=== PATIENT | female | born 1985 | race American Indian/Alaskan Native ===

== ENCOUNTER 2016-11-24 16:36 | Inpatient (IN) | payer MEDICAID ==
[2016-11-24] MEDS ORDERED: BRETHINE IVP PRN (20:25)
[2016-11-24] MEDS ORDERED: XYLOCAINE 2% INFILTRATI ONE (20:25)
[2016-11-24] MEDS ORDERED: BRETHINE SUB-Q PRN (20:25)
[2016-11-24] MEDS ORDERED: POLYCILLIN/NS 2 GM/100 ML 2 GM/100 ML BAG IV ONE (20:25)
[2016-11-24] MEDS ORDERED: ZOFRAN IV PRN (20:25)
[2016-11-24] MEDS ORDERED: ePHEDrine SULFATE IV PRN ×2 (20:25→22:11)
[2016-11-24] MEDS ORDERED: SUBLIMAZE IV PRN (20:25)
[2016-11-24] MEDS ORDERED: STADOL IV PRN (20:25)
[2016-11-24] MEDS ORDERED: MINERAL OIL PO PRN (20:25)
--- NOTE | 2016-11-24 20:31 | History and Physical Report ---
History of Present Illness Date of examination: 11/24/16 Date of admission: 11/24/16 20:23 Chief complaint: Labor History of present illness: Pt is a 31yo BF EDC 11/18/16; EGA 40 6/7 weeks presents to L&D complaining of RUC's q 3-5 mins. She received late care at [facility] since 24 weeks, and course has been unremarkable except for Trichomonas treated 11/17/16. records are available and GBS is Negative. Past History Past Medical History: no pertinent history Past Surgical History: no surgical history INSURANCE COUNSEL History: chlamydia, herpes, trichomonas Family/Genetic History: diabetes, other (asthma) Social history: no significant social history, single - Obstetrical History Expected Date of Delivery: 11/18/16 Actual Gestation: 40 Week(s) 6 Day(s) : 3 Medications and Allergies Allergies Allergy/AdvReac Type Severity Reaction Status Date / Time No Known Allergies Allergy Verified 02/12/14 02:17 Home Medications Medication Instructions Recorded Confirmed Last Taken Type No Known Home Medications [No 09/21/15 09/21/15 Unknown History Reported Home Medications] Active Meds: Active Medications Butorphanol Tartrate (Stadol) 2 mg IV Q2H PRN PRN Reason: Pain , Severe (7-10) Ephedrine Sulfate (Ephedrine Sulfate) 10 mg IV Q2M PRN PRN Reason: Hypotension Stop: 11/24/16 20:30 Fentanyl (Sublimaze) 100 mcg IV Q2H PRN PRN Reason: Labor Pain Ampicillin Sodium (Polycillin/Ns 1 Gm/50 Ml) 1 gm in 50 mls @ 100 mls/hr IV Q4HR CHRISTINA PRN Reason: Protocol Ampicillin Sodium (Polycillin/Ns 2 Gm/100 Ml) 2 gm in 100 mls @ 100 mls/hr IV ONCE ONE PRN Reason: Protocol Stop: 11/24/16 21:24 Review of Systems All systems: negative - Vital Signs Vital signs: Vital Signs Pulse BP 91 H 124/79 11/24/16 17:00 11/24/16 17:00 Temp Pulse Resp BP Pulse Ox 91 H 118/70 11/24/16 17:00 11/24/16 17:00 - Physical Exam Breasts: Positive: deferred Cardiovascular: Regular rate Lungs: Positive: Clear to auscultation Abdomen: Positive: normal appearance Genitourinary (Female): Positive: normal external genitalia Uterus: Positive: normal size Extremities: Positive: normal - Obstetrical FHR: category 1 Uterine Contraction Monitor Mode: External Cervical Dilatation: 4 Cervical Effacement Percentage: 70 station: -2 Uterine Contraction Pattern: Regular Uterine Tone Measurement Phase: Contraction Uterine Contraction Intensity: Moderate Results Result Diagrams: 11/24/16 20:15 All other labs normal. Assessment and Plan - Patient Problems (1) 40 weeks gestation of Onset Date: 11/24/16 Current Visit: Yes Status: Acute Plan to address problem: A: IUP @ 40 6/7 weeks in labor P: Admit to L&D for expectant vaginal delivery (2) Active labor at term Onset Date: 11/24/16 Current Visit: No Status: Acute
[2016-11-24 20:39] LABS: Hematocrit 37.1 % (30.3-42.9); Hemoglobin 12.4 gm/dl (10.1-14.3); Mean Corpuscular HGB Conc 33 % (30-34); Mean Corpuscular Hemoglobin 27 pg (28-32); Mean Corpuscular Volume 81 fl (79-97); Platelet Count 151 K/mm3 (140-440); Red Blood Count 4.58 M/mm3 (3.65-5.03); Red Cell Distribution Width 13.9 % (13.2-15.2); White Blood Count 6.1 K/mm3 (4.5-11.0)
[2016-11-24] MEDS: LACTATED RINGERS 1,000 ML IV SCH ×2 (20:48→21:47)
[2016-11-24] MEDS ORDERED: PITOCin/NS 20 UNIT/1000ML DRIP 20 UNITS/1,000 ML BAG IV SCH (21:00)
[2016-11-24] MEDS ORDERED: PITOCin/NS 30 UNIT/500ML 30 UNITS/500 ML BAG IV SCH ×2 (21:00)
[2016-11-24] MEDS ORDERED: ePHEDrine SULFATE ONE (22:02)
[2016-11-24] MEDS ORDERED: NARCAN 2 MG/2 ML IV PRN (22:11)
--- NOTE | 2016-11-24 22:12 | Anesthesia Consultation ---
Anesthesia Consult and Med Hx Date of service: 11/24/16 - Airway Anesthetic Teeth Evaluation: Good ROM Head & Neck: Adequate Mental/Hyoid Distance: Adequate Mallampati Class: Class II Intubation Access Assessment: Probably Good - Pulmonary Exam CTA: Yes - Cardiac Exam Cardiac Exam: RRR - Pre-Operative Health Status ASA Pre-Surgery Classification: ASA2 Proposed Anesthetic Plan: Epidural - Pulmonary Hx Asthma: No COPD: No Hx Pneumonia: No - Cardiovascular System Hx Hypertension: No - Central Nervous System Hx Seizures: No Hx Psychiatric Problems: No - Endocrine Hx Renal Disease: No Hx End Stage Renal Disease: No Hx Hypothyroidism: No Hx Hyperthyroidism: No - Hematic Hx Anemia: No Hx Sickle Cell Disease: No - Other Systems Hx Alcohol Use: No
[2016-11-24] MEDS: fentaNYL-BUPIV 2 MCG/ML-0.125% 200 MCG/100 ML BAG EPIDURAL SCH (22:35)
[2016-11-25] MEDS ORDERED: POLYCILLIN/NS 1 GM/50 ML 1 GM/50 ML BAG IV SCH (00:27)
[2016-11-25] MEDS: LACTATED RINGERS 1,000 ML IV SCH ×2 (02:05→05:48)
[2016-11-25] MEDS: fentaNYL-BUPIV 2 MCG/ML-0.125% 200 MCG/100 ML BAG EPIDURAL SCH (05:44)
[2016-11-25] MEDS ORDERED: BICITRA ONE (07:20)
[2016-11-25] MEDS ORDERED: REGLAN ONE (07:21)
[2016-11-25] MEDS ORDERED: PEPCID IV ONE (07:21)
[2016-11-25] MEDS ORDERED: ANCEF/STERILE WATER 2 GM/20 ML 2 GM/20 ML SYRINGE IV ONE (07:22)
--- NOTE | 2016-11-25 07:30 | Progress Note ---
Assessment and Plan - Patient Problems (1) 40 weeks gestation of Onset Date: 11/24/16 Current Visit: Yes Status: Acute Plan to address problem: A: IUP @ 41 0/7 weeks in labor Face presentation - mentum posterior. I discussed with pt that the baby may turn, but there is the possibility that if she remains mentum posterior that she will not deliver vaginally, and a C Section my be necessary. P: Will attempt to turn the fetus when completely dilated, otherwise will proceed with a C Section (2) Active labor at term Onset Date: 11/24/16 Current Visit: No Status: Acute Subjective - Subjective Date of service: 11/25/16 Principal diagnosis: IUP @ 41 0/7 weeks Interval history: Pt is currently 9.5/C/Face presentation - mentum posterior. I discussed with pt that the baby may turn, but there is the possibility that if she remains mentum posterior that she will not deliver vaginally, and a C Section my be necessary. Patient reports: loss of fluid, movement normal, contractions, no new complaints, no vaginal bleeding Objective - Vital Signs Vital Signs: Vital Signs - 12hr 11/24/16 11/24/16 11/24/16 20:50 21:08 21:51 Temperature 97.8 F Pulse Rate 84 Respiratory 18 18 Rate Blood Pressure O2 Sat by Pulse 99 Oximetry 11/24/16 11/24/16 11/24/16 21:54 21:56 21:57 Temperature Pulse Rate 81 80 80 Respiratory Rate Blood Pressure 119/69 120/70 O2 Sat by Pulse 100 Oximetry 11/24/16 11/24/16 11/24/16 21:58 22:00 22:02 Temperature Pulse Rate 82 82 85 Respiratory Rate Blood Pressure 125/74 113/71 O2 Sat by Pulse 99 Oximetry 11/24/16 11/24/16 11/24/16 22:04 22:06 22:07 Temperature Pulse Rate 86 96 H 92 H Respiratory Rate Blood Pressure 118/58 101/58 O2 Sat by Pulse 100 Oximetry 11/24/16 11/24/16 11/24/16 22:08 22:10 22:12 Temperature Pulse Rate 97 H 107 H 107 H Respiratory Rate Blood Pressure 96/55 98/55 116/67 O2 Sat by Pulse 100 Oximetry 11/24/16 11/24/16 11/24/16 22:14 22:16 22:17 Temperature Pulse Rate 91 H 98 H 114 H Respiratory Rate Blood Pressure 121/66 125/66 O2 Sat by Pulse 100 Oximetry 11/24/16 11/24/16 11/24/16 22:18 22:22 22:27 Temperature Pulse Rate 108 H 107 H 94 H Respiratory Rate Blood Pressure 127/57 O2 Sat by Pulse 78 L 100 100 Oximetry 11/24/16 11/24/16 11/24/16 22:32 22:34 22:37 Temperature Pulse Rate 93 H 107 H 99 H Respiratory Rate Blood Pressure 110/67 O2 Sat by Pulse 100 100 Oximetry 11/24/16 11/24/16 11/24/16 22:42 22:47 22:49 Temperature Pulse Rate 97 H 97 H 88 Respiratory Rate Blood Pressure 114/73 O2 Sat by Pulse 100 100 Oximetry 11/24/16 11/24/16 11/24/16 22:52 22:57 23:02 Temperature Pulse Rate 90 101 H 90 Respiratory Rate Blood Pressure O2 Sat by Pulse 100 94 0 L Oximetry 11/24/16 11/24/16 11/24/16 23:06 23:07 23:12 Temperature Pulse Rate 91 H 84 109 H Respiratory Rate Blood Pressure 111/58 O2 Sat by Pulse 100 100 Oximetry 11/24/16 11/24/16 11/24/16 23:13 23:17 23:18 Temperature Pulse Rate 85 89 96 H Respiratory Rate Blood Pressure O2 Sat by Pulse 0 L 100 0 L Oximetry 11/24/16 11/24/16 11/24/16 23:19 23:22 23:27 Temperature Pulse Rate 100 H 100 H 92 H Respiratory Rate Blood Pressure 106/55 O2 Sat by Pulse 100 100 Oximetry 11/24/16 11/24/16 11/24/16 23:32 23:35 23:37 Temperature Pulse Rate 102 H 103 H 100 H Respiratory Rate Blood Pressure 101/58 O2 Sat by Pulse 100 100 Oximetry 11/24/16 11/24/16 11/24/16 23:42 23:47 23:50 Temperature Pulse Rate 99 H 92 H 83 Respiratory Rate Blood Pressure 111/62 O2 Sat by Pulse 100 100 Oximetry 11/24/16 11/24/16 11/25/16 23:52 23:57 00:03 Temperature Pulse Rate 89 92 H 89 Respiratory Rate Blood Pressure O2 Sat by Pulse 100 100 92 Oximetry 11/25/16 11/25/16 11/25/16 00:05 00:08 00:13 Temperature Pulse Rate 99 H 84 83 Respiratory Rate Blood Pressure 106/55 O2 Sat by Pulse 73 L 100 Oximetry 11/25/16 11/25/16 11/25/16 00:18 00:20 00:22 Temperature Pulse Rate 88 83 Respiratory Rate Blood Pressure 116/64 O2 Sat by Pulse 100 37 L Oximetry 11/25/16 11/25/16 11/25/16 00:23 00:28 00:33 Temperature Pulse Rate 79 82 87 Respiratory Rate Blood Pressure O2 Sat by Pulse 100 100 100 Oximetry 11/25/16 11/25/16 11/25/16 00:35 00:38 00:42 Temperature Pulse Rate 81 80 77 Respiratory Rate Blood Pressure 104/62 O2 Sat by Pulse 100 0 L Oximetry 11/25/16 11/25/16 11/25/16 00:43 00:48 00:49 Temperature Pulse Rate 91 H 81 78 Respiratory Rate Blood Pressure 116/69 O2 Sat by Pulse 100 100 Oximetry 11/25/16 11/25/16 11/25/16 00:53 00:58 01:03 Temperature Pulse Rate 77 96 H 93 H Respiratory Rate Blood Pressure O2 Sat by Pulse 100 100 100 Oximetry 11/25/16 11/25/16 11/25/16 01:04 01:08 01:13 Temperature Pulse Rate 93 H 84 81 Respiratory Rate Blood Pressure 105/55 O2 Sat by Pulse 100 100 Oximetry 11/25/16 11/25/16 11/25/16 01:18 01:19 01:23 Temperature Pulse Rate 96 H 96 H 80 Respiratory Rate Blood Pressure 97/54 O2 Sat by Pulse 100 100 Oximetry 11/25/16 11/25/16 11/25/16 01:26 01:28 01:33 Temperature Pulse Rate 94 H 83 82 Respiratory Rate Blood Pressure O2 Sat by Pulse 0 L 100 100 Oximetry 11/25/16 11/25/16 11/25/16 01:36 01:38 01:40 Temperature Pulse Rate 80 91 H 64 Respiratory Rate Blood Pressure 114/65 O2 Sat by Pulse 100 45 L Oximetry 11/25/16 11/25/16 11/25/16 01:43 01:46 01:48 Temperature Pulse Rate 75 81 82 Respiratory Rate Blood Pressure O2 Sat by Pulse 100 0 L 100 Oximetry 11/25/16 11/25/16 11/25/16 01:50 01:53 01:58 Temperature Pulse Rate 74 76 78 Respiratory Rate Blood Pressure 120/70 O2 Sat by Pulse 100 100 Oximetry 11/25/16 11/25/16 11/25/16 02:03 02:04 02:06 Temperature Pulse Rate 76 74 50 L Respiratory Rate Blood Pressure 119/72 O2 Sat by Pulse 100 15 L Oximetry 11/25/16 11/25/16 11/25/16 02:08 02:13 02:18 Temperature Pulse Rate 81 77 81 Respiratory Rate Blood Pressure O2 Sat by Pulse 100 100 100 Oximetry 11/25/16 11/25/16 11/25/16 02:19 02:23 02:28 Temperature Pulse Rate 79 81 82 Respiratory Rate Blood Pressure 114/67 O2 Sat by Pulse 100 100 Oximetry 11/25/16 11/25/16 11/25/16 02:33 02:34 02:38 Temperature Pulse Rate 78 76 75 Respiratory Rate Blood Pressure 114/68 O2 Sat by Pulse 100 100 Oximetry 11/25/16 11/25/16 11/25/16 02:43 02:45 02:49 Temperature Pulse Rate 75 88 99 H Respiratory Rate Blood Pressure 125/74 O2 Sat by Pulse 100 93 100 Oximetry 11/25/16 11/25/16 11/25/16 02:51 02:56 02:58 Temperature Pulse Rate 82 75 85 Respiratory Rate Blood Pressure O2 Sat by Pulse 0 L 100 71 L Oximetry 11/25/16 11/25/16 11/25/16 03:01 03:04 03:06 Temperature Pulse Rate 70 73 70 Respiratory Rate Blood Pressure 128/83 O2 Sat by Pulse 100 100 Oximetry 11/25/16 11/25/16 11/25/16 03:11 03:16 03:19 Temperature Pulse Rate 76 75 72 Respiratory Rate Blood Pressure 121/80 O2 Sat by Pulse 100 100 Oximetry 11/25/16 11/25/16 11/25/16 03:21 03:24 03:26 Temperature Pulse Rate 78 80 67 Respiratory Rate Blood Pressure O2 Sat by Pulse 100 79 L 100 Oximetry 11/25/16 11/25/16 11/25/16 03:30 03:31 03:34 Temperature Pulse Rate 79 80 74 Respiratory Rate Blood Pressure 136/86 O2 Sat by Pulse 91 100 Oximetry 11/25/16 11/25/16 11/25/16 03:36 03:37 03:41 Temperature Pulse Rate 75 72 68 Respiratory Rate Blood Pressure O2 Sat by Pulse 100 85 100 Oximetry 11/25/16 11/25/16 11/25/16 03:44 03:46 03:49 Temperature Pulse Rate 77 75 76 Respiratory Rate Blood Pressure 133/95 O2 Sat by Pulse 79 L 100 Oximetry 11/25/16 11/25/16 11/25/16 03:51 03:56 04:00 Temperature Pulse Rate 81 77 76 Respiratory Rate Blood Pressure O2 Sat by Pulse 100 100 60 L Oximetry 11/25/16 11/25/16 11/25/16 04:01 04:04 04:06 Temperature Pulse Rate 76 75 77 Respiratory Rate Blood Pressure 123/78 O2 Sat by Pulse 85 100 Oximetry 11/25/16 11/25/16 11/25/16 04:11 04:16 04:19 Temperature Pulse Rate 90 86 70 Respiratory Rate Blood Pressure 140/73 O2 Sat by Pulse 98 99 Oximetry 11/25/16 11/25/16 11/25/16 04:21 04:26 04:31 Temperature Pulse Rate 66 70 76 Respiratory Rate Blood Pressure O2 Sat by Pulse 100 100 100 Oximetry 11/25/16 11/25/16 11/25/16 04:35 04:36 04:41 Temperature Pulse Rate 69 76 79 Respiratory Rate Blood Pressure 126/75 O2 Sat by Pulse 100 99 Oximetry 11/25/16 11/25/16 11/25/16 04:46 04:51 04:56 Temperature Pulse Rate 89 93 H 83 Respiratory Rate Blood Pressure O2 Sat by Pulse 99 99 97 Oximetry 11/25/16 11/25/16 11/25/16 05:01 05:04 05:06 Temperature Pulse Rate 80 81 89 Respiratory Rate Blood Pressure 139/65 O2 Sat by Pulse 97 98 Oximetry 11/25/16 11/25/16 11/25/16 05:11 05:16 05:20 Temperature Pulse Rate 87 68 76 Respiratory Rate Blood Pressure 151/73 O2 Sat by Pulse 90 100 Oximetry 11/25/16 11/25/16 11/25/16 05:21 05:26 05:31 Temperature Pulse Rate 69 79 67 Respiratory Rate Blood Pressure O2 Sat by Pulse 100 100 100 Oximetry 11/25/16 11/25/16 11/25/16 05:36 05:41 05:43 Temperature Pulse Rate 74 77 81 Respiratory Rate Blood Pressure 134/81 O2 Sat by Pulse 100 100 Oximetry 11/25/16 11/25/16 11/25/16 05:46 05:51 05:56 Temperature Pulse Rate 76 79 83 Respiratory Rate Blood Pressure O2 Sat by Pulse 100 100 99 Oximetry 11/25/16 11/25/16 11/25/16 06:01 06:06 06:11 Temperature Pulse Rate 82 82 84 Respiratory Rate Blood Pressure O2 Sat by Pulse 99 99 100 Oximetry 11/25/16 11/25/16 11/25/16 06:16 06:21 06:26 Temperature Pulse Rate 80 83 81 Respiratory Rate Blood Pressure O2 Sat by Pulse 100 98 100 Oximetry 11/25/16 11/25/16 11/25/16 06:31 06:36 06:41 Temperature Pulse Rate 83 87 83 Respiratory Rate Blood Pressure O2 Sat by Pulse 100 100 100 Oximetry 11/25/16 11/25/16 11/25/16 06:46 06:51 06:56 Temperature Pulse Rate 84 85 85 Respiratory Rate Blood Pressure O2 Sat by Pulse 100 100 100 Oximetry 11/25/16 11/25/16 11/25/16 07:01 07:06 07:11 Temperature 99.2 F Pulse Rate 88 93 H 83 Respiratory 18 Rate Blood Pressure O2 Sat by Pulse 99 100 100 Oximetry 11/25/16 11/25/16 07:16 07:21 Temperature Pulse Rate 98 H 85 Respiratory Rate Blood Pressure 152/68 O2 Sat by Pulse 100 98 Oximetry - Exam Abdomen: Present: normal appearance, soft FHR: category 1 Uterine Contraction Monitor Mode: External Cervical Dilatation: 9.5 (face presentation ) Cervical Effacement Percentage: 100 (mentum posterior) station: -1 Uterine Contraction Pattern: Regular Uterine Tone Measurement Phase: Contraction Uterine Contraction Intensity: Moderate - Labs Labs: Abnormal Labs 11/24/16 20:15 MCH 27 L Laboratory Results - last 24 hr 11/24/16 11/24/16 20:15 20:15 WBC 6.1 RBC 4.58 Hgb 12.4 Hct 37.1 MCV 81 MCH 27 L MCHC 33 RDW 13.9 Plt Count 151 Blood Type A POSITIVE Antibody Screen Negative
--- NOTE | 2016-11-25 08:10 | Anesthesia Day of Surgery ---
Anesthesia Day of Surgery - Day of Surgery Patient Examined: Yes Patient H&P Reviewed: Yes Patient is NPO: Yes
[2016-11-25] MEDS ORDERED: XYLOCAINE MPF 2% ONE ×4 (08:13→08:30)
[2016-11-25] MEDS ORDERED: MORPHINE ONE ×2 (08:40)
[2016-11-25] MEDS ORDERED: WATER FOR INJ (PF) 10 ML ONE (08:41)
[2016-11-25] MEDS ORDERED: ZOFRAN ONE (09:10)
--- NOTE | 2016-11-25 09:20 | Operative Report ---
Operative Report Operative Report: Date of procedure: 11/25/2016 Pre-operative diagnosis: 1. Intrauterine at 41-0/7 weeks in labor 2. 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 Healy EBL: 1000 mL's Findings: A 3648 g male infant in mentum posterior face presentation Apgars 5 at 1 minute 6 at 5 minutes 8 at 10 minutes. Clear amniotic fluid. Normal uterus. Normal tubes and ovaries bilaterally. Procedure: After the patient was prepped and draped in usual sterile fashion, and after satisfactory level of epidural anesthesia was obtained, the skin knife was used to make a transverse skin incision. The incision was excised down to layer of the fascia, which was nicked in the midline and extended laterally using the Bovie cautery. The rectus muscles were dissected off the rectus fascia both superiorly and inferiorly. The rectus bellies in the midline, and the peritoneum was entered under direct visualization. The peritoneal incision was extended superiorly and inferiorly. A bladder flap was created and the bladder blade was then placed. The uterus was scored in a curvilinear linear fashion, entered in the midline revealing clear amniotic fluid. The infant's head was delivered onto the surgical field, and the oropharynx and nasopharynx were bulb suctioned. The rest of the 's body was delivered, cord was doubly clamped and cut and the infant was handed to the waiting respiratory team. The placenta was manually removed from the uterus, and the uterus removed from its normal anatomical position. After gentle uterine lavage, the incision was inspected and found to be without extensions. It was then closed in 2 layers using 0 Vicryl suture in a running interlocking fashion, the second layer imbricating the first. After good hemostasis was achieved, copious amounts or irrigation was performed, and the gutters were suctioned free of blood and blood clots. Tisseel sealant was sprayed across the uterine incision. The uterus was then returned to its normal anatomical position, and after excellent hemostasis assured, the peritoneum was reapproximated using 3-0 Vicryl suture in a running interlocking fashion, and then the rectus muscles were reapproximated using 3-0 Vicryl suture in a figure- of-eight configuration. The fascia was then reapproximated using 0 Vicryl suture in running interlocking fashion. The subcutaneous layer was made hemostatic using Bovie cautery, the Tisseel sealant was sprayed across the fascial incision and the skin edges reapproximated using 4-0 Vicryl suture in a subcuticular fashion. Patient tolerated the procedure well was transported to recovery in stable condition.
[2016-11-25] MEDS ORDERED: WATER FOR IRRIG STERILE IR ONE (09:30)
[2016-11-25] MEDS ORDERED: NACL 0.9% IR ONE (09:30)
[2016-11-25] MEDS ORDERED: D5LR 1,000 ML IV SCH (10:00)
[2016-11-25] MEDS ORDERED: SODIUM CHLORIDE FLUSH SYRINGE 10 ML IV PRN (10:00)
[2016-11-25] MEDS ORDERED: TUCKS PAD TP PRN (10:00)
[2016-11-25] MEDS ORDERED: TORADOL IV PRN (10:00)
[2016-11-25] MEDS ORDERED: NORCO 5/325 PO PRN (10:00)
[2016-11-25] MEDS ORDERED: PITOCin/NS 20 UNIT/1000ML DRIP 20 UNITS/1,000 ML BAG IV SCH (10:00)
[2016-11-25] MEDS ORDERED: TYLENOL PO PRN (10:30)
[2016-11-25] MEDS ORDERED: MYLICON PO PRN (10:30)
[2016-11-25] MEDS ORDERED: NARCAN 0.4 MG/1 ML IV PRN (10:30)
[2016-11-25] MEDS ORDERED: LANSINOH TP PRN (10:30)
[2016-11-25] MEDS ORDERED: PHENERGAN PR PRN (10:30)
[2016-11-25] MEDS: ANCEF/NS 1 GM/50 ML 1 GM/50 ML BAG IV SCH (17:11)
--- NOTE | 2016-11-25 17:32 | Post Anesthesia Evaluation ---
- Post Anesthesia Evaluation Patient Participated: Yes Airway Patent: Yes Stable Respiratory Function: Yes Temp > 96.8F: Yes Pain Manageable: Yes Adequeate Hydration: Yes Anesthesia Complications: No Block Receding Appropriately: Yes
[2016-11-25 21:54] LABS: Hematocrit 32.7 % (30.3-42.9); Hemoglobin 10.7 gm/dl (10.1-14.3)
[2016-11-25] MEDS ORDERED: SENOKOT PO PRN (22:00)
[2016-11-25] MEDS ORDERED: MILK OF MAGNESIA PO PRN (22:00)
[2016-11-25] MEDS: PERCOCET 5/325 PO PRN (22:50)
[2016-11-26] MEDS: ANCEF/NS 1 GM/50 ML 1 GM/50 ML BAG IV SCH (00:36)
[2016-11-26] MEDS: PERCOCET 5/325 PO PRN ×3 (05:08→22:47)
[2016-11-26] MEDS ORDERED: BOOSTRIX IM ONE (06:00)
[2016-11-26] MEDS: FEOSOL PO SCH (10:54)
[2016-11-26] MEDS: PRENATAL VITAMIN PO SCH (10:54)
[2016-11-26] MEDS ORDERED: M-M-R II VACCINE SUB-Q ONE (11:00)
--- NOTE | 2016-11-26 12:36 | Progress Note ---
Assessment and Plan POD # 1 s/p Primary LTCS -stable P: -Continue routine post-op care -Anticipate discharge in 24-48 hours - Patient Problems (1) S/P primary low transverse Current Visit: Yes Status: Acute Subjective - Subjective Date of service: 11/26/16 Principal diagnosis: POD # 1 Interval history: Patient seen and examined, stable doing well no issues. No fever or chills, pain well-controlled, ambulating without difficulty Patient reports: appetite normal, voiding normally, pain well controlled, flatus , ambulating normally, no dizzy ambulation, no nauseated : doing well Objective - Vital Signs Latest vital signs: Vital Signs Temp Pulse Pulse Resp BP BP 11/26/16 07:50 98.1 F 98 H 20 119/71 11/26/16 05:08 18 11/26/16 00:00 99.0 F 102 H 20 105/59 11/25/16 22:50 20 11/25/16 20:10 98.6 F 98 H 20 134/63 11/25/16 16:50 99.4 F 103 H 20 133/73 Intake and Output 11/25/16 11/26/16 11/26/16 22:59 06:59 14:59 Intake Total 1150 250 360 Output Total 1100 100 Balance 50 150 360 Intake: IV 550 250 ANCEF/NS 1 GM/50 ML 1 gm 50 In 50 ml @ 100 mls/hr IV Q8H CHRISTINA Rx#:[id number] 1,000 ml @ 125 mls/ 500 250 hr IV DIRECT CHRISTINA Rx#: [id number] Oral 600 360 Output: Urine 1100 100 Indwelling Catheter 1100 Void 100 Other: Total, Intake Amount 240 360 Total, Output Amount 600 100 # Voids Void 1 - Exam Abdomen: Present: normal appearance, soft. Absent: distention, tenderness, guarding, rigidity Uterus: Present: fundal height below umbilicus. Absent: tenderness Extremities: Present: normal Incision: Present: dressed
--- NOTE | 2016-11-26 13:00 | Progress Note ---
Subjective Date of service: 11/26/16 Principal diagnosis: POD # 1 Interval history: 1st POD after Patient is in the bed, comfortable. Pain is well controlled with pain meds. Ambulated well. No residual neurological deficit. No anesthesia complications Objective - Constitutional Vitals: Vital Signs - 12hr 11/26/16 11/26/16 05:08 07:50 Temperature 98.1 F Pulse Rate [ 98 H Right] Respiratory 18 20 Rate Blood Pressure 119/71 [Right Arm] - Labs CBC & Chem 7: 11/25/16 21:33
[2016-11-26] MEDS: MOTRIN PO PRN (17:00)
[2016-11-27] MEDS: MOTRIN PO PRN ×2 (03:17→15:13)
--- NOTE | 2016-11-27 08:44 | Progress Note ---
Assessment and Plan POD # 2 s/p Primary LTCS -stable P: -Continue routine post-op care -Anticipate discharge in 24 hours - Patient Problems (1) S/P primary low transverse Current Visit: Yes Status: Acute Subjective - Subjective Date of service: 11/27/16 Principal diagnosis: POD # 2 Interval history: Patient seen and examined, stable doing well no issues. No fever or chills, pain well-controlled, ambulating without difficulty Patient reports: appetite normal, voiding normally, pain well controlled, flatus , ambulating normally, no dizzy ambulation, no nauseated Hamer: doing well Objective - Vital Signs Latest vital signs: Vital Signs Temp Pulse Pulse Resp BP 11/27/16 03:17 18 11/26/16 23:25 98.5 F 85 18 108/66 11/26/16 22:47 18 11/26/16 17:15 98.5 F 100 H 20 128/69 11/26/16 13:54 20 Intake and Output 11/26/16 11/27/16 11/27/16 22:59 06:59 14:59 Intake Total 600 420 Balance 600 420 Intake: Oral 360 Intake, Free Water 240 420 Other: Total, Intake Amount 360 # Voids Void 1 1 - Exam Abdomen: Present: normal appearance, soft. Absent: distention, tenderness, guarding, rigidity Uterus: Present: fundal height below umbilicus. Absent: tenderness Extremities: Present: normal Incision: Present: dry, intact
--- NOTE | 2016-11-27 08:47 | Discharge Summary ---
Providers - Providers Date of Admission: 11/24/16 20:23 Date of discharge: 11/28/16 Attending physician: VENITA CHARLES Primary care physician: VENITA CHARLES Hospitalization Reason for admission: active labor, IUP at term Delivery: Procedure: primary low transverse Incision: dry, intact Other procedures: none complications: none Discharge diagnosis: IUP at term delivered baby: male Hospital course: Uncomplicated postoperative course Condition at discharge: Good Disposition: DISCHARGED TO HOME OR SELFCARE - Discharge Diagnoses (1) S/P primary low transverse Status: Acute Plan - Discharge Medications Prescriptions: Ferrous Sulfate [Feosol 325 MG tab] 325 mg PO BID #60 tablet HYDROcodone/APAP 5-325 [[place] 5/325] 1 each PO Q6HR PRN #30 tablet PRN Reason: Pain Ibuprofen [Motrin] 800 mg PO Q8HR PRN #30 tablet PRN Reason: Moder Pain Unrelieved By [place] Vit W-Ca,Fe,FA(<1 mg) [ Vitamins] 1 each PO DAILY #30 tablet - Provider Discharge Summary Activity: no sex for 6 weeks, no heavy lifting 4 weeks, no strenuous exercise Diet: routine Instructions: routine Additional instructions: [] Smoking cessation referral if applicable(refer to patient education folder for contact #) [] Refer to [facility] Booklet Call your doctor immediately for: * Fever > 100.5 * Heavy vaginal bleeding ( >1 pad per hour) * Severe persistent headache * Shortness of breath * Reddened, hot, painful area to leg or breast * Drainage or odor from incision. * Keep incision clean and dry at all times and follow doctor's instructions regarding bathing/showering - Follow up plan Follow up: VENITA CHARLES MD [Primary Care Provider] - 14 Days
[2016-11-27] MEDS: PERCOCET 5/325 PO PRN ×2 (10:15→17:58)
[2016-11-27] MEDS: PRENATAL VITAMIN PO SCH (10:15)
[2016-11-27] MEDS: FEOSOL PO SCH (10:15)
[2016-11-27] MEDS ORDERED: FLUARIX QUAD 2016-2017(36 MOS+) IM ONE (12:00)
[2016-11-28] MEDS: PERCOCET 5/325 PO PRN ×2 (00:05→09:48)
[2016-11-28] MEDS: MOTRIN PO PRN (04:10)
[2016-11-28 08:15] VITALS: BP 138/82
[2016-11-28] MEDS: PRENATAL VITAMIN PO SCH (09:48)
[2016-11-28] MEDS: FEOSOL PO SCH (09:48)
== END 2016-11-28 15:00 | disposition home or self-care (01) | DRG 766 ==
LOC: TRG 16:36 → LD 20:23 → OB 11-25 11:50
PROVIDERS: ADMIT Obstetrics & Gynecology; ATTEND Obstetrics & Gynecology
PROC: 10D00Z1 Extraction of Products of Conception, Low, Open Approach (ICD-10-PCS; principal; 2016-11-24)
PROC: 3E0234Z Introduction of Serum, Toxoid and Vaccine into Muscle, Percutaneous Approach (ICD-10-PCS; 2016-11-26)
DX: O32.3XX0 Maternal care for face, brow and chin presentation, not applicable or unspecified (principal); Z37.0 Single live birth; Z3A.40 40 weeks gestation of pregnancy; Z23 Encounter for immunization
CPT/HCPCS: 36415; 85014; 85018; 85027; 86850; 86900; 86901; 90471; 90686; 90715; 99211; C9250; G0463; J0290; J0690; J1885; J2270; J2405; J2590; J2765; J3010; J7120; J7121

== ENCOUNTER 2021-10-06 17:46 | Emergency (ER) | payer MEDICAID ==
[2021-10-06] MEDS ORDERED: ACETAMINOPHEN W/CODEINE 300-30 MG TAB PO ONE (19:34)
[2021-10-06] MEDS ORDERED: predniSONE 20 MG TAB PO ONE (19:34)
[2021-10-06] MEDS ORDERED: CYCLOBENZAPRINE 10 MG TAB PO ONE (19:34)
[2021-10-06] MEDS ORDERED: KETOROLAC 10 MG TAB PO ONE (19:34)
--- NOTE | 2021-10-06 19:40 | Emergency Department Report ---
ED Extremity Problem HPI - General Chief complaint: Extremity Problem,Nontraumatic Stated complaint: SHARP PAIN LT LEG Time Seen by Provider: 10/06/21 19:33 Source: patient Mode of arrival: Ambulatory Limitations: No Limitations - History of Present Illness Initial comments: 35 yof with no pmh presents to ed for evaluation of left leg pain since y. She denies any injury but states that she started having what fells likes a sharp, deep pain that goes from her left hip area down to her toes. She states that pain is only present when she bears weight. She denies cp, sob, and hemoptysis. MD Complaint: extremity pain -: Sudden, days(s) (3) Location: left, lower extremity History of Same: No -: No fever, No associated dyspnea, No associated chest pain Severity scale (0 -10): 9 Quality: burning, aching Consistency: intermittent Improves with: rest Associated Symptoms: denies: chest pain, shortness of breath, fever, myalgias - Related Data Previous Rx's Medication Instructions Recorded Last Taken Type Ferrous Sulfate [Feosol 325 MG tab] 325 mg PO BID #60 tablet 11/25/16 Unknown Rx HYDROcodone/APAP 5-325 [Ransom 1 each PO Q6HR PRN #30 tablet 11/25/16 Unknown Rx 5/325] Ibuprofen [Motrin] 800 mg PO Q8HR PRN #30 tablet 11/25/16 Unknown Rx Vit Calc,Iron,Folic 1 each PO DAILY #30 tablet 11/25/16 Unknown Rx [ Vitamins] Brompheniramine/Pseudoephed/Dm 118 ml PO 4XD PRN #118 cc 10/06/21 Unknown Rx [Bromfed Dm Cough Syrup] Naproxen [Naprosyn] 500 mg PO BID #14 tab 10/06/21 Unknown Rx Prednisone [predniSONE 10 mg 10 mg PO .TAPER #1 tab 10/06/21 Unknown Rx (6-Day Pack, 21 Tabs)] Allergies Allergy/AdvReac Type Severity Reaction Status Date / Time No Known Allergies Allergy Verified 02/12/14 02:17 ED Review of Systems ROS: Stated complaint: SHARP PAIN LT LEG Other details as noted in HPI Comment: All other systems reviewed and negative Constitutional: no symptoms reported Respiratory: no symptoms reported Cardiovascular: denies: chest pain, palpitations, dyspnea on exertion, edema Gastrointestinal: denies: abdominal pain Musculoskeletal: denies: back pain, joint swelling Neurological: denies: weakness ED Past Medical Hx - Past Medical History Previous Medical History?: No Hx Hypertension: No Hx Congestive Heart Failure: No Hx Diabetes: No Hx Deep Vein Thrombosis: No Hx Renal Disease: No Hx Sickle Cell Disease: No Hx Seizures: No Hx Asthma: No Hx COPD: No Hx HIV: No - Surgical History Past Surgical History?: No - Social History Smoking Status: Never Smoker - Medications Home Medications: Home Medications Medication Instructions Recorded Confirmed Last Taken Type Ferrous Sulfate [Feosol 325 MG tab] 325 mg PO BID #60 tablet 11/25/16 Unknown Rx HYDROcodone/APAP 5-325 [Ransom 1 each PO Q6HR PRN #30 tablet 11/25/16 Unknown Rx 5/325] Ibuprofen [Motrin] 800 mg PO Q8HR PRN #30 tablet 11/25/16 Unknown Rx Vit Calc,Iron,Folic 1 each PO DAILY #30 tablet 11/25/16 Unknown Rx [ Vitamins] Brompheniramine/Pseudoephed/Dm 118 ml PO 4XD PRN #118 cc 10/06/21 Unknown Rx [Bromfed Dm Cough Syrup] Naproxen [Naprosyn] 500 mg PO BID #14 tab 10/06/21 Unknown Rx Prednisone [predniSONE 10 mg 10 mg PO .TAPER #1 tab 10/06/21 Unknown Rx (6-Day Pack, 21 Tabs)] ED Physical Exam - General Limitations: No Limitations General appearance: alert, in no apparent distress - Head Head exam: Present: atraumatic, normocephalic - Eye Eye exam: Absent: conjunctival injection - Neck Neck exam: Present: normal inspection - Respiratory Respiratory exam: Present: normal lung sounds bilaterally. Absent: respiratory distress, wheezes, chest wall tenderness - GI/Abdominal GI/Abdominal exam: Present: soft. Absent: distended, tenderness - Extremities Exam Extremities exam: Present: normal inspection - Expanded Lower Extremity Exam Left Hip exam: Present: tenderness. Absent: swelling Upper Leg exam: Absent: tenderness, swelling, erythema Knee exam: Present: full ROM. Absent: tenderness, swelling, pain w/ pronation/supination Lower Leg exam: Present: full ROM, tenderness. Absent: swelling, ecchymosis, deformity, Carmita's sign Foot/Toe exam: Present: normal inspection, full ROM, tenderness, swelling Neuro vascular tendon exam: Absent: no vascular compromise, pulse deficit, abnormal cap refill, sensory deficit, extremity cold to touch, pallor Gait: Positive: observed and normal - Back Exam Back exam: Present: normal inspection, full ROM - Neurological Exam Neurological exam: Present: alert, oriented X3 - Psychiatric Psychiatric exam: Present: normal affect, normal mood - Skin Skin exam: Present: warm, dry, intact ED Course Vital Signs 10/06/21 10/06/21 10/06/21 18:00 19:47 19:49 Temperature 98.7 F Pulse Rate 67 Respiratory 18 14 14 Rate Blood Pressure 151/96 Blood Pressure [Left] O2 Sat by Pulse 98 Oximetry 10/06/21 20:14 Temperature 98.6 F Pulse Rate 73 Respiratory 18 Rate Blood Pressure Blood Pressure 132/85 [Left] O2 Sat by Pulse 100 Oximetry ED Medical Decision Making - Medical Decision Making 35 yof with no pmh presents to ed for evaluation of left leg pain since Tuesday. She denies any injury but states that she started having what fells likes a sharp, deep pain that goes from her left hip area down to her toes. She states that pain is only present when she bears weight. She denies cp, sob, and hemoptysis. Found to have pain consistent with lumbar radicular pain, so patient will be treated with a steroid pack and is encouraged to follow up with pcp or orthopedics if no improvement or worsening symptoms. She verbalized understanding. Critical Care Time: No Critical care attestation.: If time is entered above; I have spent that time in minutes in the direct care of this critically ill patient, excluding procedure time. ED Disposition Clinical Impression: Lumbar radicular pain, URI with cough and congestion Disposition: HOME / SELF CARE / HOMELESS Is pt being admited?: No Does the pt Need Aspirin: No Condition: Stable Instructions: Cough, Adult, [id number], Radicular Pain, Upper Respiratory Infection, Adult, [id number] Additional Instructions: Take medications as prescribed. Follow up with pcp. Return to Ed if no improvement or worsening symptoms. Prescriptions: Brompheniramine/Pseudoephed/Dm [Bromfed Dm Cough Syrup] 118 ml PO 4XD PRN #118 cc PRN Reason: Cough Naproxen [Naprosyn] 500 mg PO BID #14 tab Prednisone [predniSONE 10 mg (6-Day Pack, 21 Tabs)] 10 mg PO .TAPER #1 tab Referrals: PRIMARY CARE, [Primary Care Provider] - 3-5 Days Time of Disposition: 19:40
[2021-10-06 20:15] VITALS: BP 132/85
== END 2021-10-06 20:14 | disposition home or self-care (01) ==
LOC: ED 17:46
DX: M54.16 Radiculopathy, lumbar region (principal); J06.9 Acute upper respiratory infection, unspecified; R05.9 Cough, unspecified
CPT/HCPCS: 99282